=== PATIENT | female | born 1970 | race Caucasian/White ===

== ENCOUNTER 2022-06-08 05:26 | Day surgery (SDC) | payer OTHER ==
[2022-06-08] MEDS ORDERED: ULTRACET PO (16:20)
== END 2022-06-08 21:50 | disposition home or self-care (01) ==
LOC: CIR.AMB 05:26 → SURH 09:01 → EDSTATUS 09:04 → CIR.AMB 09:05
PROVIDERS: ATTEND Surgery
DX: C20 Malignant neoplasm of rectum (principal); Z20.822 Contact with and (suspected) exposure to COVID-19

== ENCOUNTER 2025-02-05 08:15 | Day surgery (SDC) | payer OTHER ==
[~2025-02-05 08:15] MED LIST: ULTRACET PO
[2025-02-05] MEDS ORDERED: TRAM1TAB98 PO (11:22)
[2025-02-05] MEDS ORDERED: CEFAZOLIN SODIUM 1,000 MG VIAL IV ONE (12:00)
== END 2025-02-05 13:40 | disposition home or self-care (01) ==
LOC: CIR.AMB 08:15
PROVIDERS: ATTEND Surgery
DX: T82.594A Other mechanical complication of infusion catheter, initial encounter (principal); C20 Malignant neoplasm of rectum; R59.0 Localized enlarged lymph nodes; Z91.013 Allergy to seafood